=== PATIENT | female | born 1955 | race Caucasian/White ===

== ENCOUNTER 2018-10-25 10:34 | Emergency (ER) | payer MEDICAID ==
[~2018-10-25] VITALS: Ht 157.5 cm; Wt 76.3 kg
[~2018-10-25 10:34] MED LIST: CARDIZEM CD300 MG PO; CINNAMON500 MG PO; FISHOIL; FLEXERIL PO; HYDROCHLOROTHIA25 M1 PO; K-DUR 20 MEQ T20 MEQ PO; NAPROSYN500 MG PO; NORCO 5-325 TA1 EACH PO; PAXIL20 MG PO; PERCOCET 5-3251 EACH PO; SYNTHROID125 MCG PO; ULTRAM 50MG TAB50 MG PO; XANAX 0.25 MG0.25 MG PO; ZOLOFT 50 MG TA50 M1 PO
[2018-10-25] MEDS ORDERED: COZAAR 25 MG TA25 M1 PO (10:53)
[2018-10-25] MEDS ORDERED: VITAMIN D2000 UNIT PO (10:53)
[2018-10-25 11:24] LABS: ABSOLUTE BASOPHILS 0.1 thou/uL (0.0-0.2); ABSOLUTE EOSINOPHILS 0.2 thou/uL (0.0-0.7); ABSOLUTE LYMPHOCYTES 1.6 thou/uL (0.8-5.3); ABSOLUTE MONOCYTES 0.9 thou/uL (0.0-1.2); ABSOLUTE NEUTROPHILS 4.7 thou/uL (1.6-8.1); EOSINOPHILS 2.3 %; HEMATOCRIT 43.2 % (37.0-47.0); HEMOGLOBIN 14.5 gm/dL (12.0-15.0); LYMPHOCYTES 21.4 %; MCH 29.7 pg (26.0-34.0); MCHC 33.7 g/dL (28.0-37.0); MCV 88.1 fL (80.0-100.0); NUCLEATED RBCS 0 /100WBC; PLATELET COUNT* 307 thou/uL (150-400); POLYS 63.3 %; WBC 7.3 thou/uL (4.0-11.0)
[2018-10-25 11:33] LABS: ANION GAP 7 mmol/L (7-16); BUN 14 mg/dL (7-18); CALCIUM 9.6 mg/dL (8.5-10.1); CHLORIDE 102 mmol/L (98-107); CO2 30 mmol/L (21-32); CREATININE 0.9 mg/dL (0.6-1.3); GLUCOSE 105 mg/dL (70-99); POTASSIUM 3.4 mmol/L (3.5-5.1); SODIUM 139 mmol/L (136-145)
[2018-10-25 11:43] LABS: ALKALINE PHOSPHATASE 97 U/L (46-116); SGOT 23 U/L (15-37); SGPT 39 U/L (30-65); TOTAL BILIRUBIN 0.5 mg/dL (<0.1-1.0); TOTAL PROTEIN 7.7 g/dL (6.4-8.2); TROPONIN-I LEVEL <0.06 ng/mL (<0.06)
[2018-10-25] MEDS ORDERED: TESSALON PERLE100 M1 PO (12:13)
[2018-10-25] MEDS ORDERED: MUCINEX600 MG PO (12:13)
[2018-10-25 12:34] VITALS: BP 149/87
--- NOTE | 2018-10-25 15:51 | EKG ---
[place] [address] ELECTROCARDIOGRAM REPORT Name: TYRELL GAONA Room: [facility]#: [id number] Admission: 10/25/18 Attend Phys: Discharge: 10/25/18 Date of : 57 Report #: [id number] THIS REPORT FOR: //name// [facility] ED Test Date: 2018-10-25 Test Time: 10:50:47 Pat Name: TYRELL GAONA Department: Room: Gender: F Demand Equipment Repairer: BONNIE : 1955 Requested By: Maxi Pride Order Number: [id number] MD: Cal Ashby Measurements Intervals [place] Rate: 82 P: 31 GA: 144 QRS: 4 QRSD: 93 T: 34 QT: 376 QTc: 439 Interpretive Statements Sinus rhythm nonspecific st changes Abnormal R-wave progression, late transition Compared to ECG 04/18/2014 09:53:02 No significant changes Electronically Signed On 10-25-2018 15:51:03 FLOORING MACHINE FEEDER by Cal Ashby [email or web address] <ELECTRONICALLY SIGNED> By: Cal Ashby MD, [facility] 10/25/18 1551 1050 105 Cal Ashby MD, FAC /EPI
== END 2018-10-25 12:34 | disposition home or self-care (01) ==
LOC: M.ERS 10:34
PROVIDERS: Emergency Medicine Emergency Medical Services
DX: B34.9 Viral infection, unspecified (principal); I10 Essential (primary) hypertension; E11.9 Type 2 diabetes mellitus without complications; E03.9 Hypothyroidism, unspecified; Z90.49 Acquired absence of other specified parts of digestive tract; Z90.710 Acquired absence of both cervix and uterus; Z88.0 Allergy status to penicillin; Z88.1 Allergy status to other antibiotic agents; Z88.5 Allergy status to narcotic agent; Z88.8 Allergy status to other drugs, medicaments and biological substances

== ENCOUNTER 2018-11-25 11:54 | Emergency (ER) | payer OTHER, MEDICAID ==
[~2018-11-25] VITALS: Ht 154.9 cm; Wt 69.0 kg
[~2018-11-25 11:54] MED LIST changes: +COZAAR 25 MG TA25 M1 PO; +MUCINEX600 MG PO; +TESSALON PERLE100 M1 PO; +VITAMIN D2000 UNIT PO
[2018-11-25 14:27] VITALS: BP 125/57
[2018-11-25] MEDS ORDERED: FLEXERIL PO (14:42)
[2018-11-25] MEDS ORDERED: ULTRAM 50MG TAB50 MG PO (14:42)
[2018-11-25] MEDS ORDERED: MOBIC7.5 MG PO (14:50)
== END 2018-11-25 14:53 | disposition home or self-care (01) ==
LOC: M.ERS 11:54
DX: S20.222A Contusion of left back wall of thorax, initial encounter (principal); M25.532 Pain in left wrist; I10 Essential (primary) hypertension; E11.9 Type 2 diabetes mellitus without complications; E03.9 Hypothyroidism, unspecified; Z90.710 Acquired absence of both cervix and uterus; Z86.718 Personal history of other venous thrombosis and embolism; Z85.43 Personal history of malignant neoplasm of ovary; Z90.49 Acquired absence of other specified parts of digestive tract; Z88.6 Allergy status to analgesic agent; Z88.5 Allergy status to narcotic agent; Z88.0 Allergy status to penicillin; Z88.1 Allergy status to other antibiotic agents; Z88.8 Allergy status to other drugs, medicaments and biological substances; W01.0XXA Fall on same level from slipping, tripping and stumbling without subsequent striking against object, initial encounter; Y93.89 Activity, other specified; Y92.89 Other specified places as the place of occurrence of the external cause; Y99.8 Other external cause status

== ENCOUNTER → 2019-11-29 | Outpatient (CLI) | payer OTHER ==
[~2019-11-29] MED LIST changes: +MOBIC7.5 MG PO
== END ==
LOC: M.RAD 11:37
DX: R05 Cough (principal)